=== PATIENT | male | born 1955 | race Caucasian/White ===

== ENCOUNTER 2017-09-30 17:58 | Emergency (ER) | payer BC ==
[~2017-09-30] VITALS: Ht 190.5 cm; Wt 88.5 kg
[~2017-09-30 17:58] MED LIST: AMBIEN 5 MG TABL5 M1 PO; CARDURA4 MG PO; QUINU5 PD; ZYRTEC-D TABLE1 EACH PO
== END 2017-09-30 19:06 | disposition home or self-care (01) ==
LOC: ER 17:58
DX: S01.81XA Laceration without foreign body of other part of head, initial encounter (principal); E78.00 Pure hypercholesterolemia, unspecified; Z23 Encounter for immunization; Z88.1 Allergy status to other antibiotic agents; W01.198A Fall on same level from slipping, tripping and stumbling with subsequent striking against other object, initial encounter; Y93.01 Activity, walking, marching and hiking; Y92.89 Other specified places as the place of occurrence of the external cause; Y99.8 Other external cause status